=== PATIENT | female | born 1980 | race American Indian/Alaskan Native ===

== ENCOUNTER 2020-12-24 10:45 | Emergency (ER) | payer SELFPAY ==
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
[2020-12-24] MEDS ORDERED: HYDROcodone/ACETAMINOPHEN 5-325 MG TAB PO ONE (11:21)
[2020-12-24 11:47] VITALS: BP 137/68
== END 2020-12-24 11:43 | disposition home or self-care (01) ==
LOC: ED 10:45
DX: M50.10 Cervical disc disorder with radiculopathy, unspecified cervical region (principal); J44.9 Chronic obstructive pulmonary disease, unspecified; F17.200 Nicotine dependence, unspecified, uncomplicated; F12.90 Cannabis use, unspecified, uncomplicated; Z88.6 Allergy status to analgesic agent; Z79.899 Other long term (current) drug therapy; Z90.49 Acquired absence of other specified parts of digestive tract; Z98.51 Tubal ligation status
CPT/HCPCS: 99282